=== PATIENT | female | born 1965 | race Caucasian/White ===

== ENCOUNTER 2016-11-03 13:11 | Emergency (ER) | payer MEDICARE, MEDICAID ==
[~2016-11-03] VITALS: Ht 165.1 cm; Wt 45.0 kg
[~2016-11-03 13:11] MED LIST: BISA10SU8 PR; BISA5TAB5 PO; CARI1TAB34; CIPR500T4 PO; DILA100C PO; DILA2TAB2 PO; FENT75DI T-DERMAL; FLAG500T PO; FLEEENE3 PR; HYDR-3535 PO; LEVO100T4 PO; MAGN1SOL2 PO; XANA1TAB6 PO
[2016-11-03 13:21] VITALS: BP 120/80; PULSE 86; RESP 14; TEMP 98.4; O2SAT 96
--- NOTE | 2016-11-03 13:26 | PD ---
Physical Exam Time Seen by Provider: 13:25 Narrative 50 y/o female with decreased appetite, general fatigue, 14 pound weight loss in the last month. She was "dry heaving" this morning and had a syncopal episode. Vital signs reviewed. Seen at triage desk. Awaiting bed placement. Data Data Last Documented VS Vital Signs Date Time Temp Pulse Resp B/P Pulse Ox O2 Delivery O2 Flow Rate FiO2 11/03/16 13:21 98.4 86 14 120/80 96 MDM Medical Record Reviewed: Yes Supervised Visit with JOSE LUIS: Gee Leal Nov 03, 2016 13:26
--- NOTE | 2016-11-03 16:23 | RADRPT ---
EXAM DATE/TIME: 11/03/2016 16:11 [place] COMPARISON: CT ABDOMEN & PELVIS W CONTRAST, May 09, 2015, 12:08. INDICATIONS : Short of breath MEDICAL HISTORY : Hepatitis C. Hernia, hiatal. SURGICAL HISTORY : Appendectomy. Hysterectomy.bowel obstruction repair ENCOUNTER: Initial ACUITY: 1 day PAIN SCORE: 0/10 LOCATION: Bilateral chest FINDINGS: PA and lateral views of the chest demonstrate a normal-sized cardiac silhouette. Lungs are hyperinfla dominguez with enlarged retrosternal airspace. No effusion, consolidation, or pneumothorax is identified. T he bones and soft tissues demonstrate no acute finding. Breast implants are present. CONCLUSION: No acute cardiopulmonary abnormality is identified. Background lung changes are suggestive of obstruc tive airways disease/emphysema. Emir Langley MD on November 03, 2016 at 16:20 Board Certified Radiologist. This report was verified electronically.
[2016-11-03] MEDS ORDERED: FENT75DI T-DERMAL (16:54)
[2016-11-03] MEDS ORDERED: ALPR1TAB3 PO (16:54)
[2016-11-03] MEDS ORDERED: HYDR-3535 PO (16:54)
[2016-11-03] MEDS ORDERED: SOMA350T PO (16:54)
[2016-11-03] MEDS ORDERED: DILA100C PO (16:54)
[2016-11-03] MEDS ORDERED: LEVO100T5 PO (16:54)
[2016-11-03] MEDS ORDERED: SODIUM CHLOR 0.9% 1000 ML INJ 1,000 ML IV ONE ×2 (17:00→18:00)
[2016-11-03] MEDS ORDERED: ONDANSETRON HCL 4 MG/2 ML VIAL IV ONE (17:00)
[2016-11-03] MEDS ORDERED: ACETAMINOPHEN/HYDROcodone 325 MG/5 MG TAB PO ONE (17:00)
[2016-11-03 17:55] LABS: AUTOMATED NEUTROPHIL # 4.9 TH/MM3 (1.8-7.7); BASOPHIL % 0.7 % (0.0-2.0); EOSINOPHIL % 0.2 % (0.0-4.0); HEMATOCRIT 47.6 % (35.0-46.0); HEMO FLAGS DIFF FINAL; LYMPH % 24.8 % (9.0-44.0); LYMPHOCYTE # 1.8 TH/MM3 (1.0-4.8); MEAN CELL VOLUME 94.2 FL (80.0-100.0); MEAN CORPUSCULAR HEMOGLOBIN 31.4 PG (27.0-34.0); MEAN CORPUSCULAR HGB CONC 33.3 % (32.0-36.0); MONO % 5.5 % (0.0-8.0); NEUT % 68.8 % (16.0-70.0); PLATELET COUNT 371 TH/MM3 (150-450); RED BLOOD COUNT 5.06 MIL/MM3 (4.00-5.30); RED CELL DISTRIBUTION WIDTH 13.9 % (11.6-17.2); WHITE BLOOD COUNT 7.1 TH/MM3 (4.0-11.0)
[2016-11-03 18:03] LABS: ALT (GPT) 38 U/L (10-53)
[2016-11-03 18:05] LABS: ALKALINE PHOSPHATASE 130 U/L (45-117); TOTAL BILIRUBIN ADULT 0.3 MG/DL (0.2-1.0)
[2016-11-03 18:06] LABS: ANION GAP 9 MEQ/L (5-15); AST (GOT) 39 U/L (15-37); BICARBONATE 24.2 MEQ/L (21.0-32.0); BLOOD UREA NITROGEN 12 MG/DL (7-18); CHLORIDE 106 MEQ/L (98-107); GLOMERULAR FILTRATION RATE 102 ML/MIN (>89); MAGNESIUM 2.3 MG/DL (1.5-2.5); POTASSIUM 4.3 MEQ/L (3.5-5.1); SODIUM (NA) 139 MEQ/L (136-145)
[2016-11-03 19:01] VITALS: BP 117/66; PULSE 71; RESP 14; O2SAT 95
[2016-11-03 19:09] VITALS: BP 123/66; PULSE 68; RESP 16; O2SAT 97
[2016-11-03 19:09] LABS: BLOOD, URINE TRACE (NEG); COMMENT (UR) CULT NOT INDICATED; CULTURE IF INDICATED CULT NOT INDICATED; GLUCOSE,URINE NEG (NEG); KETONE, URINE 40 mg/dL (NEG); MUCUS URINE FEW /lpf (OCC); NITRITE,URINE NEG (NEG); PH, URINE 5.5 (5.0-8.5); SQUAMOUS EPITHELIAL CELL URINE 1 /hpf (0-5); URINE COLOR YELLOW (YELLW/STRAW)
--- NOTE | 2016-11-03 19:11 | PD ---
Data Data Last Documented VS Vital Signs Date Time Temp Pulse Resp B/P Pulse Ox O2 Delivery O2 Flow Rate FiO2 11/03/16 19:10 68 16 98 Room Air 11/03/16 19:09 123/66 11/03/16 13:21 98.4 Orders Complete Blood Count With Diff (11/03/16 13:28) Comprehensive Metabolic Panel (11/03/16 13:28) Lipase (11/03/16 13:28) Urinalysis - C+S If Indicated (11/03/16 13:28) Electrocardiogram (11/03/16 13:28) Magnesium (Mg) (11/03/16 13:28) Chest, Pa & Lat (11/03/16 ) Sodium Chlor 0.9% 1000 Ml Inj (Ns 1000 M (11/03/16 17:00) Ondansetron Inj (Zofran Inj) (11/03/16 17:00) Acetamin-Hydrocod 325-5 Mg ([place] 5-325 (11/03/16 17:00) Sodium Chlor 0.9% 1000 Ml Inj (Ns 1000 M (11/03/16 18:00) Thyroid Stimulating Hormone (11/03/16 18:03) Phenytoin (Dilantin) (11/03/16 18:03) Labs Laboratory Tests Test 11/03/16 11/03/16 17:15 18:40 White Blood Count 7.1 TH/MM3 Red Blood Count 5.06 MIL/MM3 Hemoglobin 15.9 GM/DL Hematocrit 47.6 % Mean Corpuscular Volume 94.2 FL Mean Corpuscular Hemoglobin 31.4 PG Mean Corpuscular Hemoglobin 33.3 % Concent Red Cell Distribution Width 13.9 % Platelet Count 371 TH/MM3 Mean Platelet Volume 6.8 FL Neutrophils (%) (Auto) 68.8 % Lymphocytes (%) (Auto) 24.8 % Monocytes (%) (Auto) 5.5 % Eosinophils (%) (Auto) 0.2 % Basophils (%) (Auto) 0.7 % Neutrophils # (Auto) 4.9 TH/MM3 Lymphocytes # (Auto) 1.8 TH/MM3 Monocytes # (Auto) 0.4 TH/MM3 Eosinophils # (Auto) 0.0 TH/MM3 Basophils # (Auto) 0.0 TH/MM3 CBC Comment DIFF FINAL Differential Comment Sodium Level 139 MEQ/L Potassium Level 4.3 MEQ/L Chloride Level 106 MEQ/L Carbon Dioxide Level 24.2 MEQ/L Anion Gap 9 MEQ/L Blood Urea Nitrogen 12 MG/DL Creatinine 0.62 MG/DL Estimat Glomerular Filtration 102 ML/MIN Rate Random Glucose 82 MG/DL Calcium Level 8.8 MG/DL Magnesium Level 2.3 MG/DL Total Bilirubin 0.3 MG/DL Aspartate Amino Transf 39 U/L (AST/SGOT) Alanine Aminotransferase 38 U/L (ALT/SGPT) Alkaline Phosphatase 130 U/L Total Protein 7.3 GM/DL Albumin 3.8 GM/DL Lipase 168 U/L Thyroid Stimulating Hormone 0.201 uIU/ML 3rd Gen Phenytoin (Dilantin) Level 15.3 MCG/ML Urine Color YELLOW Urine Turbidity CLEAR Urine pH 5.5 Urine Specific [place] 1.022 Urine Protein TRACE mg/dL Urine Glucose (UA) NEG mg/dL Urine Ketones 40 mg/dL Urine Occult Blood TRACE Urine Nitrite NEG Urine Bilirubin NEG Urine Urobilinogen LESS THAN 2.0 MG/DL Urine Leukocyte Esterase NEG Urine RBC 1 /hpf Urine WBC LESS THAN 1 /hpf Urine Squamous Epithelial 1 /hpf Cells Urine Mucus FEW /lpf Microscopic Urinalysis Comment CULT NOT INDICATED MDM Scripts Ondansetron Odt (Zofran Odt)4 Mg Tab4 Mg SL Q8HR PRN (Nausea/Vomiting) #15 TAB May substitute non-ODT form. Prov:Earl Funez MD 11/03/16 Krys Solis MD Nov 03, 2016 19:11 Urine Urobilinogen LESS THAN 2.0 MG/DL Urine Leukocyte Esterase NEG Urine RBC 1 /hpf Urine WBC LESS THAN 1 /hpf Urine Squamous Epithelial 1 /hpf Cells Urine Mucus FEW /lpf Microscopic Urinalysis Comment CULT NOT INDICATED MDM Medical Record Reviewed: Yes Narrative Course During the course of the patients emergency department visit, the patients history, examination, and differential diagnosis were reviewed with the patient. The patient had IV access obtained and blood work sent for analysis. The patient's case was checked out to me by Dr. Funez at the conclusion of his shift. Please see his complete history and physical. The patient was initially provided [-]. The patients laboratory studies were reviewed and remarkable for [-]. Radiology studies were reviewed and remarkable for [-] Krys Solis MD Nov 03, 2016 19:11
--- NOTE | 2016-11-03 19:19 | PD ---
HPI Chief Complaint: General Weakness Time Seen by Provider: 19:10 Travel History International Travel<30 days: No Contact w/Intl Traveler<30days: No Traveled to known affect area: No History of Present Illness HPI Is a 50 year-old woman who presents to the emergency department complaining of weight loss and feeling poorly. She states she's been losing weight over the past month or so. She today started developing retching and vomiting. She is a history of RA, seizures, hypothyroidism, and back problems. She states she saw her primary doctor about this and they did some blood work but they could not find out she was why she was having these symptoms. History Past Medical History Narrative Medical RA Seizures Hypothyroidism Back problems Social History Alcohol Use: No Tobacco Use: Yes (04/07 PPD) Allergies-Medications (Allergen,Severity, Reaction): Coded Allergies: Darvocet-N 100 (Verified Allergy, Severe, HIVES, 11/03/16) Darvon (Verified Allergy, Severe, HIVES, 11/03/16) Nubain (Verified Allergy, Severe, RASH/HIVES, 11/03/16) Toradol (Verified Allergy, Intermediate, ANXIETY, 11/03/16) Ibuprofen (Verified Adverse Reaction, Severe, GI UPSET, 11/03/16) Morphine (Verified Adverse Reaction, Intermediate, CANNOT SLEEP, 11/03/16) *MDRO Multi-Drug Resistant Organism (Verified Adverse Reaction, Unknown, ) 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 Lortab (Hydrocodone-Acetaminophen) 10-325 Mg Tab 1 Tab PO QID PRN Alprazolam 1 Mg Tab 1 Mg PO TID PRN Soma (Carisoprodol) 350 Mg Tab 350 Mg PO TID Levothyroxine (Levothyroxine Sodium) 100 Mcg Tab 100 Mcg PO DAILY Dilantin (Phenytoin Extended) 100 Mg Cap 100 Mg PO BID Review of Systems Except as stated in HPI: all other systems reviewed are Neg Physical Exam Narrative GENERAL: Well-appearing 50-year-old woman, thin, nontoxic. SKIN: Focused skin assessment warm/dry. Endo: No adenopathy in the axilla: BREAST: Bilateral breast implants. Area low and nipples are normal. No discharge. No palpable masses. CARDIOVASCULAR: Regular rate and rhythm. No murmur appreciated. RESPIRATORY: No accessory muscle use. Clear to auscultation. Breath sounds equal bilaterally. GASTROINTESTINAL: Abdomen soft, non-tender, nondistended. Hepatic and splenic margins not palpable. MUSCULOSKELETAL: No obvious deformities. Decreased muscle bulk. NEUROLOGICAL: Awake and alert. No obvious cranial nerve deficits. Motor grossly within normal limits. Normal speech. PSYCHIATRIC: Anxious. Data Data Last Documented VS Vital Signs Date Time Temp Pulse Resp B/P Pulse Ox O2 Delivery O2 Flow Rate FiO2 11/03/16 19:09 68 16 123/66 97 Room Air 11/03/16 13:21 98.4 Orders Complete Blood Count With Diff (11/03/16 13:28) Comprehensive Metabolic Panel (11/03/16 13:28) Lipase (11/03/16 13:28) Urinalysis - C+S If Indicated (11/03/16 13:28) Electrocardiogram (11/03/16 13:28) Magnesium (Mg) (11/03/16 13:28) Chest, Pa & Lat (11/03/16 ) Sodium Chlor 0.9% 1000 Ml Inj (Ns 1000 M (11/03/16 17:00) Ondansetron Inj (Zofran Inj) (11/03/16 17:00) Acetamin-Hydrocod 325-5 Mg ([place] 5-325 (11/03/16 17:00) Sodium Chlor 0.9% 1000 Ml Inj (Ns 1000 M (11/03/16 18:00) Thyroid Stimulating Hormone (11/03/16 18:03) Phenytoin (Dilantin) (11/03/16 18:03) Labs Laboratory Tests Test 11/03/16 11/03/16 17:15 18:40 White Blood Count 7.1 TH/MM3 Red Blood Count 5.06 MIL/MM3 Hemoglobin 15.9 GM/DL Hematocrit 47.6 % Mean Corpuscular Volume 94.2 FL Mean Corpuscular Hemoglobin 31.4 PG Mean Corpuscular Hemoglobin 33.3 % Concent Red Cell Distribution Width 13.9 % Platelet Count 371 TH/MM3 Mean Platelet Volume 6.8 FL Neutrophils (%) (Auto) 68.8 % Lymphocytes (%) (Auto) 24.8 % Monocytes (%) (Auto) 5.5 % Eosinophils (%) (Auto) 0.2 % Basophils (%) (Auto) 0.7 % Neutrophils # (Auto) 4.9 TH/MM3 Lymphocytes # (Auto) 1.8 TH/MM3 Monocytes # (Auto) 0.4 TH/MM3 Eosinophils # (Auto) 0.0 TH/MM3 Basophils # (Auto) 0.0 TH/MM3 CBC Comment DIFF FINAL Differential Comment Sodium Level 139 MEQ/L Potassium Level 4.3 MEQ/L Chloride Level 106 MEQ/L Carbon Dioxide Level 24.2 MEQ/L Anion Gap 9 MEQ/L Blood Urea Nitrogen 12 MG/DL Creatinine 0.62 MG/DL Estimat Glomerular Filtration 102 ML/MIN Rate Random Glucose 82 MG/DL Calcium Level 8.8 MG/DL Magnesium Level 2.3 MG/DL Total Bilirubin 0.3 MG/DL Aspartate Amino Transf 39 U/L (AST/SGOT) Alanine Aminotransferase 38 U/L (ALT/SGPT) Alkaline Phosphatase 130 U/L Total Protein 7.3 GM/DL Albumin 3.8 GM/DL Lipase 168 U/L Phenytoin (Dilantin) Level 15.3 MCG/ML Urine Color YELLOW Urine Turbidity CLEAR Urine pH 5.5 Urine Specific [place] 1.022 Urine Protein TRACE mg/dL Urine Glucose (UA) NEG mg/dL Urine Ketones 40 mg/dL Urine Occult Blood TRACE Urine Nitrite NEG Urine Bilirubin NEG Urine Urobilinogen LESS THAN 2.0 MG/DL Urine Leukocyte Esterase NEG Urine RBC 1 /hpf Urine WBC LESS THAN 1 /hpf Urine Squamous Epithelial 1 /hpf Cells Urine Mucus FEW /lpf Microscopic Urinalysis Comment CULT NOT INDICATED MDM Medical Decision Making Medical Screen Exam Complete: Yes Emergency Medical Condition: Yes Interpretation(s) Laboratory Tests Test 11/03/16 11/03/16 17:15 18:40 White Blood Count 7.1 TH/MM3 Red Blood Count 5.06 MIL/MM3 Hemoglobin 15.9 GM/DL Hematocrit 47.6 % Mean Corpuscular Volume 94.2 FL Mean Corpuscular Hemoglobin 31.4 PG Mean Corpuscular Hemoglobin 33.3 % Concent Red Cell Distribution Width 13.9 % Platelet Count 371 TH/MM3 Mean Platelet Volume 6.8 FL Neutrophils (%) (Auto) 68.8 % Lymphocytes (%) (Auto) 24.8 % Monocytes (%) (Auto) 5.5 % Eosinophils (%) (Auto) 0.2 % Basophils (%) (Auto) 0.7 % Neutrophils # (Auto) 4.9 TH/MM3 Lymphocytes # (Auto) 1.8 TH/MM3 Monocytes # (Auto) 0.4 TH/MM3 Eosinophils # (Auto) 0.0 TH/MM3 Basophils # (Auto) 0.0 TH/MM3 CBC Comment DIFF FINAL Differential Comment Sodium Level 139 MEQ/L Potassium Level 4.3 MEQ/L Chloride Level 106 MEQ/L Carbon Dioxide Level 24.2 MEQ/L Anion Gap 9 MEQ/L Blood Urea Nitrogen 12 MG/DL Creatinine 0.62 MG/DL Estimat Glomerular Filtration 102 ML/MIN Rate Random Glucose 82 MG/DL Calcium Level 8.8 MG/DL Magnesium Level 2.3 MG/DL Total Bilirubin 0.3 MG/DL Aspartate Amino Transf 39 U/L (AST/SGOT) Alanine Aminotransferase 38 U/L (ALT/SGPT) Alkaline Phosphatase 130 U/L Total Protein 7.3 GM/DL Albumin 3.8 GM/DL Lipase 168 U/L Phenytoin (Dilantin) Level 15.3 MCG/ML Urine Color YELLOW Urine Turbidity CLEAR Urine pH 5.5 Urine Specific [place] 1.022 Urine Protein TRACE mg/dL Urine Glucose (UA) NEG mg/dL Urine Ketones 40 mg/dL Urine Occult Blood TRACE Urine Nitrite NEG Urine Bilirubin NEG Urine Urobilinogen LESS THAN 2.0 MG/DL Urine Leukocyte Esterase NEG Urine RBC 1 /hpf Urine WBC LESS THAN 1 /hpf Urine Squamous Epithelial 1 /hpf Cells Urine Mucus FEW /lpf Microscopic Urinalysis Comment CULT NOT INDICATED Differential Diagnosis Anxiety, tobacco use, drug use, malignancy, stress, thyroid disease, other Narrative Course Medical decision making 50 year-old woman presents to the emergency department with reported weight loss , one episode of retching. She looks generally well. She is very thin. She states she is not distended past. She does smoke. No history of illicit drug use. She does have thyroid disease. She reports her thyroid tests have been performed recently were normal. She looks reasonably she does need further evaluation. She is due for mammogram and a colonoscopy. This will be done as an outpatient. Patient was signed out to oncoming provider at 7 PM this to follow-up on the remaining diagnostic tests, and likely discharge. Diagnosis Primary Impression: Weight loss Additional Instructions: Follow-up with her regular doctor for further evaluation for your weight loss. Return to the emergency department for any new or worsening symptoms. Med/Other Pt SpecificInfo: No Change to Meds Disposition: 01 DISCHARGE HOME Condition: Stable Earl Funez MD Nov 03, 2016 19:19
[2016-11-03] MEDS ORDERED: ZOFR4TAB3 SL (19:30)
--- NOTE | 2016-11-04 15:14 | EKG ---
Date Performed: 11/03/2016 Time Performed: 16:40:02 PTAGE: 50 years EKG: Sinus rhythm WITH SHORT SC INTERVAL NONSPECIFIC T-WAVE ABNORMALITY BORDERLINE ECG PREVIOUS TRACING : 05/09/[address]-T wave changes less prominent since prior tracing. DOCTOR: Nicolás Ingram Interpretating Date/Time 11/04/2016 15:13:47
== END 2016-11-03 21:02 | disposition home or self-care (01) ==
LOC: NEPC 13:11
DX: R63.4 Abnormal weight loss (principal); R53.1 Weakness; E03.9 Hypothyroidism, unspecified; F17.200 Nicotine dependence, unspecified, uncomplicated; Z79.899 Other long term (current) drug therapy
CPT/HCPCS: 71020; 80053; 80185; 81001; 83690; 83735; 84443; 85025; 93005; 96374; 99285; J2405; J7030